=== PATIENT | female | born 1945 | race Caucasian/White ===

== ENCOUNTER 2016-09-30 09:38 | Day surgery (SDC) ==
[2016-09-30] MEDS ORDERED: LIDOCAINE 1% 20 ML MDV ONE (10:20)
[2016-09-30] MEDS ORDERED: LIDOCAINE 1% 20 ML MDV ID ONE (10:20)
[2016-09-30] MEDS ORDERED: DIPRIVAN 20 ML VIAL IVP ONE (11:07)
[2016-09-30] MEDS ORDERED: VERSED ONE (11:07)
[2016-10-01 12:40] VITALS: BP 128/60; TEMP 98
--- NOTE | 2016-10-01 13:29 | OP ---
PROCEDURE: COLONOSCOPY TO CECUM WITH SNARE POLYPECTOMY. ENDOSCOPIST: Jazmin MARTINEZ M.D. INDICATION: HISTORY OF POLYPS. INSTRUMENT: [id number]. MEDICATION: PER ANESTHESIA. PROCEDURE: The patient was positioned for colonoscopy. The digital rectal exam was negative. The colonoscope was inserted through the anus and advanced to the cecum. The cecum was identified using the ileocecal valve and the appendiceal orifice as landmarks. The scope was slowly withdrawn through an adequately prepped colon. Careful inspection is made of each colonic segment as the scope is withdrawn in a circumferential fashion. Care is taken to inspect the proximal side ileocecal valve, haustral folds, flexures and rectal valves. The patient has undergone a sigmoid colectomy with anastomosis at approximately 20cm. Small polyps removed in the rectum using snare cautery. The retroflex exam was otherwise normal. Withdraw time 6 minute 3 seconds. PLAN: 1. Suggest repeat evaluation in 5 years [facility]
== END 2016-09-30 12:30 | disposition home or self-care (01) ==
LOC: SURG 09:38
PROVIDERS: ATTEND Internal Medicine Gastroenterology
DX: Z09 Encounter for follow-up examination after completed treatment for conditions other than malignant neoplasm (principal); Z86.010 Personal history of colon polyps; D12.7 Benign neoplasm of rectosigmoid junction; K63.89 Other specified diseases of intestine; Z90.49 Acquired absence of other specified parts of digestive tract; E11.9 Type 2 diabetes mellitus without complications

== ENCOUNTER 2017-01-05 19:31 | Emergency (ER) ==
[2017-01-05] MEDS ORDERED: AUGMENTIN 875-125 MG TAB PO STA (19:34)
--- NOTE | 2017-01-05 19:36 | ED.PDOC ---
General ED Provider: Dr. GALLO SILVERIO-ER Chief Complaint: Bite Stated Complaint: i got bit by a cat on my thumb Time Seen by Physician: 19:35 Mode of Arrival: Walk-In Information Source: Patient Exam Limitations: No limitations Nursing and Triage Documentation Reviewed and Agree: Yes Skin Complaint Exam - Skin/Soft Tissue Complaint/Exam Onset/Duration: 1 hr Symptoms Are: Still present Timing: Constant Initial Severity: Mild Current Severity: Mild Location: right thumb Character: Reports: Swelling, Raised, Painful Aggravating: Reports: None Alleviating: Reports: None Associated Signs and Symptoms: Reports: Bruising, Tenderness. Denies: Fever, Chills, Itching, Drainage, Red streaks, Joint swelling Related History: Reports: Recent trauma (cat bite) Related Surgical History: Reports: None Recent Exposure to Others w/Similar Symptoms: No Joint Tenderness Present: No Differential Diagnoses: Other Review of Systems - Review Of Systems Constitutional: Reports: No symptoms Eyes: Reports: No symptoms Ears, Nose, Mouth, Throat: Reports: No symptoms Respiratory: Reports: No symptoms Cardiac: Reports: No symptoms GI: Reports: No symptoms : Reports: No symptoms Musculoskeletal: Reports: No symptoms Skin: Reports: No symptoms Neurological: Reports: No symptoms Endocrine: Reports: No symptoms Hematologic/Lymphatic: Reports: No symptoms All Other Systems: Reviewed and Negative Past Medical History - Past Medical History Previously Healthy: Yes Endocrine: Reports: Unknown Cardiovascular: Reports: Unknown Respiratory: Reports: Unknown Hematological: Reports: Unknown Gastrointestinal: Reports: Unknown Genitourinary: Reports: Unknown Neuro/Psych: Reports: Unknown Musculoskeletal: Reports: Unknown Cancer: Reports: Unknown - Surgical History General Surgical History: Reports: Unknown - Family History Family History: Reports: Unknown - Social History Hx Substance Use: No Lives: With family Physical Exam - Physical Exam Appearance: Well-appearing, No pain distress, Well-nourished Eyes: MAYKEL ENT: Ears normal, Nose normal, Oropharynx normal Neck: Supple Respiratory: Airway patent Cardiovascular: RRR, Pulses normal, No rub, No murmur GI/: Soft Musculoskeletal: Normal strength, ROM intact, No edema, No calf tenderness Skin: Warm, Dry, Normal color Neurological: Sensation intact, Motor intact, Reflexes intact, Cranial nerves intact, Alert, Oriented Psychiatric: Affect appropriate, Mood appropriate Critical Care Note - Critical Care Note Total Time (mins): 0 Course - Course Orders, Labs, Meds: Orders Category Date Time Status Amoxicillin/Potassium Clav [Augmentin 875-125 mg Tab] MEDS 01/05/17 19:34 Stat 1 tab PO ONCE STA Medications Generic Name Dose Route Start Last Admin Trade Name Jeffery PRN Reason Stop Dose Admin Amoxicillin/Clavulanate Potassium 1 tab 01/05/17 19:34 Augmentin 875-125 Mg Tab PO 01/05/17 19:35 ONCE STA Departure - Departure Time of Disposition: 19:37 Disposition: HOME SELF-CARE Discharge Problem: Cat bite involving extremity Instructions: Animal Bite (ED) Condition: Good Pt referred to PMD for follow-up: Yes Additional Instructions: wash with soap and water --augmentin 875mg bid x 5 days #10---f/u with dr saul if any evidence of swelling or redness Home Medications: Ambulatory Orders Citalopram Hydrobromide [Celexa] DAILY 09/30/16 Ezetimibe/Simvastatin [Vytorin 10-20 mg Tablet] DAILY 09/30/16 Metoprolol Tartrate [Lopressor] BID 09/30/16 Triamterene/Hydrochlorothiazid [Maxzide 37.5 mg-25 mg Tablet] DAILY 09/30/16 Disposition Discussed With: Patient
[2017-01-05 19:40] VITALS: BP 159/62; TEMP 98.1; BMI 34.3
== END 2017-01-05 19:45 | disposition home or self-care (01) ==
LOC: ED 19:31
DX: S61.051A Open bite of right thumb without damage to nail, initial encounter (principal); W55.01XA Bitten by cat, initial encounter
CPT/HCPCS: 99283

== ENCOUNTER 2017-11-09 19:49 | Emergency (ER) ==
[2017-11-09 20:06] VITALS: BP 143/75; TEMP 99.3; BMI 35.3
[2017-11-09] MEDS ORDERED: DECADRON 4 MG/ML SDV IM STA (20:34)
[2017-11-09] MEDS ORDERED: INDOCIN PO STA (20:34)
--- NOTE | 2017-11-09 20:39 | ED.PDOC ---
General ED Provider: Dr. GINA DE ANDA Chief Complaint: Foot Pain/Injury Stated Complaint: Left foot has been swollen for the past 2 days. Has a history of gout but has infrequest excercerbations. Tried Ibuprufen and Colchinin but has not helped. Time Seen by Physician: 20:37 Mode of Arrival: Wheelchair Information Source: Patient Exam Limitations: No limitations Primary Care Provider: DAGO SZYMANSKI Nursing and Triage Documentation Reviewed and Agree: Yes Reviewed sepsis parameters & appropriate labs ordered?: No System Inflammatory Response Syndrome: Not Applicable Sepsis Protocol: For patient's 13 years and over: Temp is 96.8 and below OR 101 and greater Pulse >90 BPM Resp >20/minute Acutely Altered Mental Status Are patient's symptoms suggestive of a new infection, such as: -Pneumonia -Skin, Soft Tissue -Endocarditis -UTI -Bone, Joint Infection -Implantable Device -Acute Abdominal Infection -Wound Infection -Meningitis -Blood Stream Catheter Infection -Unknown System Inflammatory Response Syndrome: Not Applicable Musculoskeletal Complaint Exam - Ankle/Foot Complaint/Exam Location of Injury: Reports: Left, Foot Mechanism of Injury: Reports: No known trauma Onset/Duration: 2 days Symptoms Are: Reports: Still present Initial Severity: Moderate Current Severity: Moderate Location: Reports: Diffuse Character: Reports: Aching, Throbbing Alleviating: Reports: None Aggravating: Reports: Movement, Weight bearing, Prolonged standing Able to Bear Weight: Yes Associated Signs and Symptoms: Reports: Swelling Related History: Reports: Similar episode Gout Risk Factors: Reports: >40 years old, Diabetes, HTN, Obesity. Denies: Male , Alcohol abuse Related Surgical History: Reports: None Lower Extremity Findings: Present: Swelling, Erythema, Tenderness Achilles Tendon Abnormality: No Tenderness: Present: Midfoot, Metatarsals Differential Diagnosis: Gout, Tendonitis Review of Systems - Review Of Systems Constitutional: Reports: No symptoms Eyes: Reports: No symptoms Ears, Nose, Mouth, Throat: Reports: No symptoms Respiratory: Reports: No symptoms Cardiac: Reports: No symptoms GI: Reports: No symptoms : Reports: No symptoms Musculoskeletal: Reports: Joint pain, Joint swelling Skin: Reports: No symptoms Neurological: Reports: Anxiety Endocrine: Reports: No symptoms Hematologic/Lymphatic: Reports: No symptoms All Other Systems: Reviewed and Negative Past Medical History - Past Medical History Previously Healthy: Yes Endocrine: Reports: DM 2, Dyslipidemia Cardiovascular: Reports: Hypertension Respiratory: Reports: None Hematological: Reports: None Gastrointestinal: Reports: None Genitourinary: Reports: Unknown Neuro/Psych: Reports: Anxiety Musculoskeletal: Reports: Arthritis, Gout Cancer: Reports: Unknown Last Menstrual Period: MENOPAUSAL - Surgical History General Surgical History: Reports: Hysterectomy (Left oopherectomy ), Tubal ligation, , Appendectomy, Cholecystectomy, Orthopedic (Left shoulder surgery ) - Family History Family History: Reports: Unknown - Social History Smoking Status: Former smoker Hx Substance Use: No Alcohol Screening: None - Immunizations Tetanus Shot up to Date: Yes Physical Exam - Physical Exam Appearance: Ill-appearing, Well-nourished, Obese Ill-appearing: Mild Pain Distress: Moderate Eyes: Conjunctiva clear Neck: Supple Respiratory: Airway patent, Breath sounds clear, Breath sounds equal, Respirations nonlabored Cardiovascular: RRR, Pulses normal, No rub, No murmur GI/: Soft, Nontender, No masses, Bowel sounds normal, No Organomegaly Musculoskeletal: Normal strength, ROM intact, No calf tenderness, Edema Skin: Warm, Dry, Normal color Neurological: Sensation intact, Motor intact, Reflexes intact, Cranial nerves intact, Alert, Oriented Psychiatric: Affect appropriate, Mood appropriate Critical Care Note - Critical Care Note Total Time (mins): 0 Course - Course Orders, Labs, Meds: Orders Category Date Time Status Dexamethasone 4 mg/ml Inj [Decadron 4 mg/ml Sdv] MEDS 11/09/17 20:34 Stat 8 mg IM ONCE STA Indomethacin [Indocin] MEDS 11/09/17 20:34 Stat 50 mg PO ONCE STA Medications Generic Name Dose Route Start Last Admin Trade Name Freq PRN Reason Stop Dose Admin Dexamethasone Sodium Phosphate 8 mg 11/09/17 20:34 Decadron 4 Mg/Ml Sdv IM 11/09/17 20:35 ONCE STA Indomethacin 50 mg 11/09/17 20:34 Indocin PO 11/09/17 20:35 ONCE STA Vital Signs: Temp Pulse Resp BP Pulse Ox 11/09/17 19:53 99.3 F 60 18 143/75 H 94 L Departure - Departure Time of Disposition: 20:38 Disposition: HOME SELF-CARE Discharge Problem: Gout attack Qualifiers: Gout site: foot Gout etiology: unspecified cause Laterality: left Qualified Code(s): M10.9 - Gout, unspecified Instructions: Gout (ED), Low Purine Diet (ED) Condition: Stable Pt referred to PMD for follow-up: Yes IPMP verified?: No Additional Instructions: Take medications as prescribed Follow up with PCP in 3-5 days Go on a Low purine diet Prescriptions: Indomethacin 50 mg PO TID #21 capsule Methylprednisolone [Medrol Dosepak] 4 mg PO DIRECTED #1 pkg Allergies/Adverse Reactions: Allergies No Known Drug Allergies Adverse Reaction (Verified 01/05/17 19:40) Home Medications: Ambulatory Orders Citalopram Hydrobromide [Celexa] 20 mg PO DAILY 09/30/16 Ezetimibe/Simvastatin [Vytorin 10-20 mg Tablet] 1 tab PO DAILY 09/30/16 Metoprolol Tartrate [Lopressor] 50 mg PO BID 09/30/16 Triamterene/Hydrochlorothiazid [Maxzide 37.5 mg-25 mg Tablet] 1 tab PO DAILY Diphenhydramine HCl [Allergy Relief] 25 mg PO DIRECTED PRN 01/05/17 Ibuprofen 400 mg PO Q4H PRN 01/05/17 Indomethacin 50 mg PO TID #21 capsule 11/09/17 Methylprednisolone [Medrol Dosepak] 4 mg PO DIRECTED #1 pkg 11/09/17 Disposition Discussed With: Patient, Family
[2017-11-09] MEDS ORDERED: NORCO 5-325 PO STA (20:47)
== END 2017-11-09 21:02 | disposition home or self-care (01) ==
LOC: ED 19:49
DX: M10.9 Gout, unspecified (principal)
CPT/HCPCS: 96372; 99282

== ENCOUNTER 2018-01-01 16:58 | Outpatient (CLI) | payer OTHER | END 2018-01-01 16:59 | disposition home or self-care (01) | LOC: LAB 16:58 | PROVIDERS: ATTEND Internal Medicine | DX: R19.7 Diarrhea, unspecified (principal) | CPT/HCPCS: 87015; 87045; 87493; 87899 ==